=== PATIENT | male | born 1985 | race Two or more races ===

== ENCOUNTER 2023-06-12 16:25 | Emergency (ER) | payer MEDICAID, OTHER | END 2023-06-12 16:53 | disposition left against medical advice (07) | LOC: ER 16:25 | DX: F99 Mental disorder, not otherwise specified (principal); Z53.21 Procedure and treatment not carried out due to patient leaving prior to being seen by health care provider ==

== ENCOUNTER 2023-06-13 17:00 | Emergency (ER) | payer MEDICAID ==
[~2023-06-13] VITALS: Ht 182.9 cm; Wt 92.0 kg
[2023-06-13 17:55] VITALS: BP 140/89; PULSE 125; RESP 22; O2SAT 99
== END 2023-06-13 22:17 | disposition left against medical advice (07) ==
LOC: ER 17:00 → EDBD 17:00 → ER 22:17
DX: R51.9 Headache, unspecified (principal); Z53.21 Procedure and treatment not carried out due to patient leaving prior to being seen by health care provider

== ENCOUNTER 2023-06-25 21:35 | Emergency (ER) | payer MEDICAID ==
[~2023-06-25] VITALS: Ht 180.3 cm; Wt 65.0 kg
[2023-06-25] MEDS ORDERED: NALOXONE HCL 1MG/ML 2ML SYRINGE IV ONE (22:00)
[2023-06-25] MEDS ORDERED: ONDANSETRON ODT 4 MG TAB PO ONE (22:00)
[2023-06-26] MEDS ORDERED: FOLIC ACID 1 MG, MAGNESIUM SULF SDV 50% 8 MEQ, MULTIPLE VITAMIN 10 ML, THIAMINE INJ 100... INJ SCH ×5 (18:00)
[2023-06-26 23:56] VITALS: BP 142/86; PULSE 84; RESP 18; TEMP 98.2; O2SAT 98
== END 2023-06-27 00:03 | disposition home or self-care (01) ==
LOC: ER 21:35 → EDBD 21:35 → ER 06-27 00:03
DX: F15.10 Other stimulant abuse, uncomplicated (principal); R00.0 Tachycardia, unspecified
CPT/HCPCS: 93005